=== PATIENT | female | born 1980 | race Caucasian/White ===

== ENCOUNTER 2016-11-16 16:41 | Emergency (ER) | payer SELFPAY ==
[~2016-11-16] VITALS: Ht 162.6 cm; Wt 66.0 kg
[~2016-11-16 16:41] MED LIST: CETI10 PO; CLIN1CAP6 PO; ERYT250C12 PO
[2016-11-16 16:51] VITALS: BP 133/91; PULSE 76; RESP 16; TEMP 98.7; O2SAT 100
[2016-11-16] MEDS ORDERED: SODIUM CHLOR 0.9% 1000 ML INJ 1,000 ML IV SCH (17:08)
[2016-11-16] MEDS ORDERED: SODIUM CHLORIDE 0.9% FLUSH 5 ML FLUSH IVF PRN (17:15)
--- NOTE | 2016-11-16 17:18 | PD ---
HPI Chief Complaint: Flank/Kidney Pain Time Seen by Provider: 17:03 Travel History International Travel<30 days: No Contact w/Intl Traveler<30days: No Traveled to known affect area: No History of Present Illness HPI Patient is a 36-year-old female with history of kidney stones, presents to emergency room with complaints of sudden onset left-sided flank pain. Patient reports that she began to have left sided flank pain at work around 1 PM today. Patient reports that symptoms have been intermittent, reports concern for possible kidney stone. Patient reports that she has always passed her kidney since her own, reports that she is never required any urological intervention for her stones. Patient denies fevers or chills. Patient denies nausea vomiting. Patient denies urinary urgency or frequency or dysuria time. Patient denies hematuria. Patient reports that she did have urinary urgency about a month ago, reports that she took some cranberry pills and had relief of symptoms after the cranberry pills. PFSH Past Medical History Hx Anticoagulant Therapy: No Cardiovascular Problems: Yes (MVP) Diabetes: No Diminished Hearing: No Genitourinary: Yes (RECENT UTI) Kidney Stones: Yes Respiratory: Yes (ASTHMA) Immunizations Current: Yes ?: Not LMP: 10/28/16 Family History Family History: Negative Social History Alcohol Use: Yes (OCC) Tobacco Use: No Substance Use: No Allergies-Medications (Allergen,Severity, Reaction): Coded Allergies: Amoxicillin (Unverified Allergy, Unknown, RASH, 11/16/16) Penicillin (Verified Allergy, Unknown, CHILDHOOD, 11/16/16) Reported Meds & Prescriptions Reported Meds & Active Scripts Active Clindamycin Hcl (Clindamycin HCl) 300 Mg Cap 300 Mg PO TID 7 Days Erythromycin 250 Mg Cap 500 Mg PO Q6 7 Days Reported Zyrtec 10 Mg Tab (Cetirizine HCl) 10 Mg Tab 10 Mg PO DAILY Review of Systems General / Constitutional: No: Fever Eyes: No: Visual changes HENT: No: Headaches Cardiovascular: No: Chest Pain or Discomfort Respiratory: No: Shortness of Breath Gastrointestinal: Positive: Abdominal Pain (left-sided flank pain), No: Nausea , Vomiting Genitourinary: No: Dysuria Musculoskeletal: No: Pain Skin: No Rash Neurologic: No: Weakness Psychiatric: No: Depression Endocrine: No: Polydipsia Hematologic/Lymphatic: No: Easy Bruising Physical Exam Narrative GENERAL: No acute distress, nontoxic SKIN: Warm and dry. HEAD: Atraumatic. Normocephalic. EYES: Pupils equal and round. No scleral icterus. No injection or drainage. ENT: No nasal bleeding or discharge. Mucous membranes pink and moist. NECK: Trachea midline. No JVD. CARDIOVASCULAR: Regular rate and rhythm. No murmur appreciated. RESPIRATORY: No accessory muscle use. Clear to auscultation. Breath sounds equal bilaterally. GASTROINTESTINAL: Abdomen soft, non-tender, nondistended. Patient with left- sided flank pain MUSCULOSKELETAL: No obvious deformities. No clubbing. No cyanosis. No edema. NEUROLOGICAL: Awake and alert. No obvious cranial nerve deficits. Motor grossly within normal limits. Normal speech. PSYCHIATRIC: Appropriate mood and affect; insight and judgment normal. Data Data Last Documented VS Vital Signs Date Time Temp Pulse Resp B/P Pulse Ox O2 Delivery O2 Flow Rate FiO2 11/16/16 19:04 20 11/16/16 19:03 110 137/87 97 11/16/16 16:51 98.7 Orders Beta Hcg (Quant/Titer) (11/16/16 17:08) Complete Blood Count With Diff (11/16/16 17:08) Comprehensive Metabolic Panel (11/16/16 17:08) Prothrombin Time / Inr (Pt) (11/16/16 17:08) Act Partial Throm Time (Ptt) (11/16/16 17:08) Urinalysis - C+S If Indicated (11/16/16 17:08) Ct Abd/Pel W/O Iv Contrast (11/16/16 17:08) Iv Access Insert/Monitor (11/16/16 17:08) Sodium Chlor 0.9% 1000 Ml Inj (Ns 1000 M (11/16/16 17:08) Sodium Chloride 0.9% Flush (Ns Flush) (11/16/16 17:15) Labs Laboratory Tests Test 11/16/16 11/16/16 17:00 17:15 Urine Collection Type CLEAN CATCH Urine Color STRAW Urine Turbidity CLEAR Urine pH 7.0 Urine Specific [place] 1.017 Urine Protein NEG mg/dL Urine Glucose (UA) NEG mg/dL Urine Ketones NEG mg/dL Urine Occult Blood NEG Urine Nitrite NEG Urine Bilirubin NEG Urine Leukocyte Esterase NEG Urine RBC 0-3 /hpf Urine Squamous Epithelial 0-5 /hpf Cells Urine Amorphous Sediment FEW Microscopic Urinalysis Comment CULT NOT INDICATED Urine Collection Time 1700 White Blood Count 6.1 TH/MM3 Red Blood Count 4.36 MIL/MM3 Hemoglobin 13.3 GM/DL Hematocrit 39.1 % Mean Corpuscular Volume 89.7 FL Mean Corpuscular Hemoglobin 30.5 PG Mean Corpuscular Hemoglobin 34.0 % Concent Red Cell Distribution Width 12.7 % Platelet Count 240 TH/MM3 Mean Platelet Volume 8.4 FL Neutrophils (%) (Auto) 39.1 % Lymphocytes (%) (Auto) 45.5 % Monocytes (%) (Auto) 5.5 % Eosinophils (%) (Auto) 8.0 % Basophils (%) (Auto) 1.9 % Neutrophils # (Auto) 2.4 TH/MM3 Lymphocytes # (Auto) 2.8 TH/MM3 Monocytes # (Auto) 0.3 TH/MM3 Eosinophils # (Auto) 0.5 TH/MM3 Basophils # (Auto) 0.1 TH/MM3 CBC Comment DIFF FINAL Differential Comment Prothrombin Time 10.5 SEC Prothromb Time International 1.0 RATIO Ratio Activated Partial 25.8 SEC Thromboplast Time Sodium Level 140 MEQ/L Potassium Level 3.9 MEQ/L Chloride Level 107 MEQ/L Carbon Dioxide Level 22.3 MEQ/L Anion Gap 11 MEQ/L Blood Urea Nitrogen 11 MG/DL Creatinine 0.73 MG/DL Estimat Glomerular Filtration 90 ML/MIN Rate Random Glucose 98 MG/DL Calcium Level 8.7 MG/DL Total Bilirubin 0.4 MG/DL Aspartate Amino Transf 12 U/L (AST/SGOT) Alanine Aminotransferase 15 U/L (ALT/SGPT) Alkaline Phosphatase 48 U/L Total Protein 7.6 GM/DL Albumin 4.0 GM/DL Human Chorionic Gonadotropin, LESS THAN 1 Quant MIU/ML MDM Medical Decision Making Medical Screen Exam Complete: Yes Emergency Medical Condition: Yes Interpretation(s) Vital Signs Date Time Temp Pulse Resp B/P Pulse Ox O2 Delivery O2 Flow Rate FiO2 11/16/16 16:51 98.7 76 16 133/91 100 Differential Diagnosis Cystitis, pyelonephritis, nephrolithiasis, urethritis Narrative Course 36-year-old female with history of kidney stones, presents to emergency room with complaints of left-sided flank pain. Reports that she has been having intermittent left-sided flank pain since 1 PM today. Patient concerned for possible kidney stone. Patient reports that she is comfortable at this time as she took a aspirin prior to coming to the emergency room. CBC, BMP, UA as well as CT abdomen and pelvis without IV contrast ordered for further evaluation symptoms. Plan to give patient IV fluids and reevaluate her. CBC, BMP, UA reevaluated, CT abdomen pelvis with 1 mm stone seen in the lower pole of the left kidney. There is no perinephric stranding. There is no calcifications along the course of the left ureter. A copy patient CT report was given to her discharge. Patient with no complaints at this time, patient with no pain. I reviewed all labs and all studies with patient as well as all findings patient detail. Patient will return to ER as needed. Diagnosis Primary Impression: Flank pain Patient Instructions: General Instructions Departure Forms: Tests/Procedures, Work Release Enter return to work date: Nov 18, 2016 Additional Instructions: Please return to ER as needed Please bring your CT report to doctor's office for follow-up on all studies and findings from today. Please follow-up with your primary care doctor and return to ER as needed Disposition: 01 DISCHARGE HOME Condition: Stable Dolores Lara DO Nov 16, 2016 17:18
[2016-11-16 17:20] LABS: BLOOD, URINE NEG (NEG); GLUCOSE,URINE NEG (NEG); KETONE, URINE NEG (NEG); NITRITE,URINE NEG (NEG)
[2016-11-16 17:24] LABS: AUTOMATED NEUTROPHIL # 2.4 TH/MM3 (1.8-7.7); BASOPHIL # 0.1 TH/MM3 (0-0.2); BASOPHIL % 1.9 % (0.0-2.0); EOSINOPHIL # 0.5 TH/MM3 (0-0.4); HEMATOCRIT 39.1 % (35.0-46.0); HEMO FLAGS DIFF FINAL; LYMPH % 45.5 % (9.0-44.0); LYMPHOCYTE # 2.8 TH/MM3 (1.0-4.8); MEAN CELL VOLUME 89.7 FL (80.0-100.0); MEAN CORPUSCULAR HEMOGLOBIN 30.5 PG (27.0-34.0); MONO % 5.5 % (0.0-8.0); NEUT % 39.1 % (16.0-70.0); PLATELET COUNT 240 TH/MM3 (150-450); RED BLOOD COUNT 4.36 MIL/MM3 (4.00-5.30); RED CELL DISTRIBUTION WIDTH 12.7 % (11.6-17.2); WHITE BLOOD COUNT 6.1 TH/MM3 (4.0-11.0)
[2016-11-16 17:30] LABS: METHOD OF COLLECTION CLEAN CATCH; URINE COLOR STRAW (YELLW/STRAW)
[2016-11-16 17:31] LABS: COMMENT (UR) CULT NOT INDICATED; CULTURE IF INDICATED CULT NOT INDICATED; RBC, URINE 0-3 /hpf (0-3); SQUAMOUS EPITHELIAL CELL URINE 0-5 /hpf (0-5)
[2016-11-16 17:32] LABS: CHLORIDE 107 MEQ/L (98-107); POTASSIUM 3.9 MEQ/L (3.5-5.1); SODIUM (NA) 140 MEQ/L (136-145)
[2016-11-16 17:36] LABS: ANION GAP 11 MEQ/L (5-15); BICARBONATE 22.3 MEQ/L (21.0-32.0); BLOOD UREA NITROGEN 11 MG/DL (7-18)
[2016-11-16 17:38] LABS: APTT (PATIENT) 25.8 SEC (24.3-30.1); PROTHROMBIN TIME - PATIENT 10.5 SEC (9.8-11.6)
[2016-11-16 17:39] LABS: ALT (GPT) 15 U/L (10-53); AST (GOT) 12 U/L (15-37)
[2016-11-16 17:40] LABS: GLOMERULAR FILTRATION RATE 90 ML/MIN (>89); TOTAL BILIRUBIN ADULT 0.4 MG/DL (0.2-1.0)
[2016-11-16 17:42] LABS: ALKALINE PHOSPHATASE 48 U/L (45-117)
[2016-11-16 17:44] LABS: BETA HCG QUANT LESS THAN 1 MIU/ML (0-5)
--- NOTE | 2016-11-16 18:22 | RADHPO ---
EXAM DATE/TIME: 11/16/2016 18:00 [facility] COMPARISON: No previous studies available for comparison. INDICATIONS : Left flank pain today. ORAL CONTRAST: No oral contrast ingested. RADIATION DOSE: 8.45 CTDIvol (mGy) MEDICAL HISTORY : Renal calculi. SURGICAL HISTORY : None. ENCOUNTER: Initial ACUITY: 1 day PAIN SCALE: 8/10 LOCATION: Left flank TECHNIQUE: Volumetric scanning of the abdomen and pelvis was performed. Using automated exposure control and ad justment of the mA and/or kV according to patient size, radiation dose was kept as low as reasonably achievable to obtain optimal diagnostic quality images. FINDINGS: The lung bases are clear. Portion of the liver and spleen identified are free of focal defects. Gary creas and adrenal glands are unremarkable. RIGHT KIDNEY: There is no evidence for a renal stone on the right. There are no calcifications along the expected course of the right ureter. LEFT KIDNEY: 1 mm stone is seen in the lower pole of the left kidney. There is no perinephric stranding. I do no t see calcification along the expected course of the left ureter. Uterus is prominent. Pelvic contents are unremarkable. CONCLUSION: Tiny renal stone on the left without evidence for obstruction. Harjit Martin MD FACR on November 16, 2016 at 18:15 Board Certified Radiologist. This report was verified electronically.
[2016-11-16 19:03] VITALS: BP 137/87; PULSE 110; RESP 20; O2SAT 97
[2016-11-16 20:33] VITALS: BP 144/80
== END 2016-11-16 20:36 | disposition home or self-care (01) ==
LOC: PHED 16:41
DX: R10.84 Generalized abdominal pain (principal); N20.0 Calculus of kidney; Z87.442 Personal history of urinary calculi
CPT/HCPCS: 74176; 80053; 81001; 84702; 85025; 85610; 85730; 99284; J7030

== ENCOUNTER 2017-10-17 20:41 | Emergency (ER) | payer SELFPAY ==
[~2017-10-17] VITALS: Ht 162.6 cm; Wt 68.1 kg
[2017-10-17 20:47] VITALS: BP 157/89; PULSE 100; RESP 18; TEMP 98.3; O2SAT 100
[2017-10-17 21:19] VITALS: BP 143/87; PULSE 92; RESP 18; O2SAT 100
[2017-10-17] MEDS ORDERED: SYMB160A INH (21:41)
--- NOTE | 2017-10-17 21:41 | PD ---
HPI Chief Complaint: Respiratory Symptoms Time Seen by Provider: 21:25 Travel History International Travel<30 days: No Contact w/Intl Traveler<30days: No Traveled to known affect area: No History of Present Illness HPI 37-year-old female complains of shortness of breath, chest discomfort. Patient states that the symptoms started 3 days ago. Patient states that she has mild intermittent dry cough. Patient has history of asthma. Patient has been using inhaler at home. Patient states the symptoms usually worse at night. Patient denies any fever chills. Patient states the chest discomfort is across anterior chest wall discomfort intermittently. Patient states the chest discomfort is not associated with exertion. Patient denies any history of CAD. Patient denies history hypertension, diabetes, dyslipidemia. Patient is a nonsmoker. Patient denies any chance of being . PFSH Past Medical History Medical History: Denies Significant Hx Hx Anticoagulant Therapy: No Cardiovascular Problems: Yes (MVP) Diabetes: No Diminished Hearing: No Genitourinary: Yes (RECENT UTI) Kidney Stones: Yes Respiratory: Yes (ASTHMA) Immunizations Current: Yes Influenza Vaccination: No ?: Not LMP: 10/17/17 Past Surgical History Surgical History: No Previous Surgery Social History Alcohol Use: Yes (OCC) Tobacco Use: No Substance Use: No Allergies-Medications (Allergen,Severity, Reaction): Coded Allergies: amoxicillin (Verified Allergy, Unknown, RASH, 10/17/17) penicillin G (Verified Allergy, Unknown, CHILDHOOD, 10/17/17) Reported Meds & Prescriptions Reported Meds & Active Scripts Active Symbicort Inh (Budesonide/Formoterol Fumarate) 160-4.5 Mcg/Act Aero 2 Puff INH Q12HR Review of Systems General / Constitutional: No: Fever Eyes: No: Visual changes HENT: No: Headaches Cardiovascular: Positive: Chest Pain or Discomfort Respiratory: Positive: Cough, Shortness of Breath Gastrointestinal: No: Abdominal Pain Genitourinary: No: Dysuria Musculoskeletal: No: Pain Skin: No Rash Neurologic: No: Weakness Psychiatric: No: Depression Endocrine: No: Polydipsia Hematologic/Lymphatic: No: Easy Bruising Physical Exam Narrative GENERAL: Well-nourished, well-developed patient. SKIN: Focused skin assessment warm/dry. HEAD: Normocephalic. EYES: No scleral icterus. No injection or drainage. NECK: Supple, trachea midline. No JVD or lymphadenopathy. CARDIOVASCULAR: Regular rate and rhythm without murmurs, gallops, or rubs. RESPIRATORY: Breath sounds equal bilaterally. No accessory muscle use. Patient has mild expiratory wheezes bilaterally. GASTROINTESTINAL: Abdomen soft, non-tender, nondistended. MUSCULOSKELETAL: No cyanosis, or edema. BACK: Nontender without obvious deformity. No CVA tenderness. Data Data Last Documented VS Vital Signs Date Time Temp Pulse Resp B/P (MAP) Pulse Ox O2 Delivery O2 Flow Rate FiO2 10/17/17 21:19 92 18 143/87 (105) 100 10/17/17 21:19 Room Air 10/17/17 20:47 98.3 Orders Orders Electrocardiogram (10/17/17 21:32) Albuterol-Ipratropium Neb (Duoneb Neb) (10/17/17 21:45) Dexamethasone Inj (Decadron Inj) (10/17/17 21:45) MDM Medical Decision Making Medical Screen Exam Complete: Yes Emergency Medical Condition: Yes Differential Diagnosis Differential diagnosis including acute exacerbation of asthma, bronchitis, pneumonia, angina, [place], PE, pneumothorax. Narrative Course 37-year-old female with shortness of breath and chest discomfort. History of asthma. Decadron 8 mg IM. Albuterol with Atrovent unit dose treatment 1. 22: 38 PM. Patient feeling much better after the treatment. Diagnosis Primary Impression: Acute asthma exacerbation Qualified Codes: J45.41 - Moderate persistent asthma with (acute) exacerbation Patient Instructions: General Instructions Additional Instructions: Continue with albuterol treatment as directed. Symbicort as directed. Follow- up with personal physician. Return if worse. Med/Other Pt SpecificInfo: Prescription(s) given Scripts Budesonide-Formoterol Inh (Symbicort Inh) 160-4.5 Mcg/Act Aero 2 PUFF INH Q12HR, #1 INHALER 0 Refills Prov: James Elliott MD 10/17/17 Disposition: 01 DISCHARGE HOME Condition: Stable James Elliott MD Oct 17, 2017 21:41
[2017-10-17] MEDS ORDERED: DEXAMETHASONE SOD PHOS 4 MG/ML VIAL IM ONE (21:45)
[2017-10-17] MEDS ORDERED: RESP: ALBUTEROL 2.5 MG/IPRATROPIUM 0.5 MG NEB (SCH) INH ONE (21:45)
[2017-10-17 22:45] VITALS: BP 127/86
--- NOTE | 2017-10-18 10:45 | EKG ---
Date Performed: 10/17/2017 Time Performed: 21:38:42 PTAGE: 37 years EKG: Sinus rhythm WITH OCCASIONAL SUPRAVENTRICULAR PREMATURE COMPLEXES POSSIBLE LEFT ATRIAL ENLARGEMENT BORDERLINE ECG PREVIOUS TRACING : 05/31/2015 07.48 No significant change from previous tracing noted. DOCTOR: Blake Fishman Interpretating Date/Time 10/18/2017 10:44:24
== END 2017-10-17 22:52 | disposition home or self-care (01) ==
LOC: PHED 20:41
DX: J45.41 Moderate persistent asthma with (acute) exacerbation (principal)
CPT/HCPCS: 93005; 94664; 96372; 99284; J1100